=== PATIENT | male | born 1950 | race Caucasian/White ===

== ENCOUNTER 2019-05-12 10:08 | Inpatient (IN) | payer OTHER ==
[~2019-05-12] VITALS: Ht 193 cm; Wt 91.8 kg
[2019-05-12 10:17] VITALS: BP 128/70
[2019-05-12] MEDS ORDERED: DEPAKOTE500 MG PO (10:22)
[2019-05-12] MEDS ORDERED: AMARYL2 MG PO (10:22)
[2019-05-12] MEDS ORDERED: FORTAMET500 MG PO (10:22)
[2019-05-12] MEDS ORDERED: LISINOPRIL20 MG PO (10:23)
[2019-05-12] MEDS ORDERED: CARDURA4 MG PO (10:24)
[2019-05-12] MEDS ORDERED: LIPITOR40 MG PO (10:25)
[2019-05-12] MEDS ORDERED: NORVASC2.5 MG PO (10:25)
[2019-05-12] MEDS ORDERED: CLEOCIN HCL150 MG PO (10:25)
[2019-05-12 10:53] LABS: ABSOLUTE EOSINOPHILS 0.1 thou/uL (0.0-0.7); ABSOLUTE LYMPHOCYTES 1.9 thou/uL (0.8-5.3); ABSOLUTE MONOCYTES 1.9 thou/uL (0.0-1.2); ABSOLUTE NEUTROPHILS 9.7 thou/uL (1.6-8.1); BASOPHILS 0.3 %; EOSINOPHILS 0.5 %; HEMATOCRIT 39.5 % (42.0-52.0); HEMOGLOBIN 13.5 gm/dL (14.0-18.0); LYMPHOCYTES 13.9 %; MCH 33.1 pg (26.0-34.0); MCHC 34.2 g/dL (28.0-37.0); MCV 96.7 fL (80.0-100.0); MONOCYTES 14.1 %; MPV 8.5 fl. (7.2-11.1); NUCLEATED RBCS 0 /100WBC; PLATELET COUNT* 198 thou/uL (150-400); POLYS 71.2 %; RBC 4.09 mil/uL (4.50-6.00); RDW-CV 12.5 % (10.5-14.5); WBC 13.7 thou/uL (4.0-11.0)
[2019-05-12 10:59] LABS: CALCIUM 9.5 mg/dL (8.5-10.1); CREATININE 1.9 mg/dL (0.6-1.3); POTASSIUM 4.7 mmol/L (3.5-5.1)
[2019-05-12 11:16] LABS: ALBUMIN 2.9 g/dL (3.4-5.0); TOTAL BILIRUBIN 0.7 mg/dL (<0.1-1.0); TOTAL PROTEIN 7.4 g/dL (6.4-8.2); TROPONIN-I LEVEL 0.08 ng/mL (<0.06)
[2019-05-12 11:48] LABS: URINE BILIRUBIN NEGATIVE (Negative); URINE BLOOD 3+ (Negative); URINE CLARITY CLEAR; URINE COLOR YELLOW; URINE GLUCOSE-RANDOM NEGATIVE (Negative); URINE KETONES 1+ (Negative); URINE LEUKOCYTES-REFLEX NEGATIVE (Negative); URINE NITRITE-REFLEX NEGATIVE (Negative); URINE PROTEIN 3+ (Negative); URINE SPECIFIC GRAVITY >= 1.030 (1.005-1.030); URINE UROBILINOGEN 0.2 E.U./dl (0.2-1.0)
[2019-05-12 12:05] LABS: SQUAMOUS 0-3 Few /LPF (0-3)
[2019-05-12 12:06] LABS: BACTERIA-REFLEX 1-9 Few /HPF (None Seen); HYALINE CASTS 0-3 Few /LPF (None Seen); MUCUS 4-6 Moderate strn/LPF (None Seen); URINE RBC 0-2 Rare /HPF (0-2); URINE WBC-REFLEX 0-5 Rare /HPF (0-5)
[2019-05-12 12:07] LABS: CRYSTALS None Seen /LPF (None Seen)
[2019-05-12 14:05] VITALS: BP 130/56
[2019-05-12 14:15] VITALS: BP 142/55; BP 170/59
[2019-05-12 16:24] VITALS: BP 134/65
--- NOTE | 2019-05-12 17:26 | NUR ---
RECEIVED PT FROM ER 1400. HE IS ALERT/ORIENTED X4. VSS. 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 UP STANDBY ASSIST FROM CART TO BED. GAIT SLIGHTLY UNSTEADY. UPPER EXTREMITY TREMORS NOTED. ADMISSION ASSESSMENT AND HISTORY COMPLETED. HOME MEDICATIONS RECONCILED. IVF INFUSING. UPDATED THE PATIENT ON PLAN OF CARE. CALL LIGHT WITHIN REACH. BED ALARM ON. HOURLY ROUNDING CHARTED.
[2019-05-12 19:50] VITALS: BP 162/76
[2019-05-13] VITALS: BP 192/80
[2019-05-13 04:00] VITALS: BP 195/78
[2019-05-13 04:13] LABS: HEMATOCRIT 32.8 % (42.0-52.0); MCH 34.1 pg (26.0-34.0); MCV 97.5 fL (80.0-100.0); MPV 8.4 fl. (7.2-11.1); RBC 3.37 mil/uL (4.50-6.00); RDW-CV 12.8 % (10.5-14.5); WBC 9.1 thou/uL (4.0-11.0)
[2019-05-13 04:29] LABS: HEMOGLOBIN 11.5 gm/dL (14.0-18.0)
[2019-05-13 04:43] LABS: ALBUMIN 2.2 g/dL (3.4-5.0); CALCIUM 8.2 mg/dL (8.5-10.1); CREATININE 1.6 mg/dL (0.6-1.3); POTASSIUM 4.8 mmol/L (3.5-5.1); TOTAL BILIRUBIN 0.6 mg/dL (<0.1-1.0)
--- NOTE | 2019-05-13 06:34 | NUR ---
RECIEVED REPORT AND ASSUMED CARE AT 1900. VSS. CARDIAC MONITORING IN PLACE. PT DENIES COMPLAINTS OF PAIN. ASSESSMENT COMPLETED CHARTED. PT HAS VISIBLE TREMORS, PT REPORTS THESE ARE NEW OF THREE DAYS AGO. PER ER NOTATION PT FRIEND WHO WAS PRESENT IN ER, STATES TREMORS ARE NORMAL FOR PATIENT R/T MEDICATION. PT ALSO REPORTS HE TAKES HIS ANTIOBIOTICS PRESCRIBED FOR TOOTH ABCESS "OFF AND ON" "WHEN IT HURTS". PT UP WITH ASSIST TO BSC, ON RA. BED LOCKED IN LOWEST POSITION, CALL LIGHT WITHIN REACH, BED ALARM ON. HOURLY ROUNDING COMPLETED AND ALL NEEDS MET
[2019-05-13 08:00] VITALS: BP 168/72
--- NOTE | 2019-05-13 10:28 | NUR ---
Pt is A&O. Resides at home alone. Independent. No DME. No hx of HH or SNF. Supportive friends, no family. Goal is home. No needs anticipated.
[2019-05-13 10:38] VITALS: BP 158/66
--- NOTE | 2019-05-13 12:28 | EKG ---
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
--- NOTE | 2019-05-13 15:02 | NUR ---
ASSUMED PT CARE REPORT RECEIVED FROM NURSE PT IS AOX4. 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 PT IS ON RA. SEIZURE PRECAUTION IN PLACE. ACCUCHECK 84 THIS AM PT WAS NPO FOR THE NIGHT AND WAS WAITING FOR CARDIOLOGY CONSULT. ECHO COMPLETED. PT HAS TREMORS. UP WITH ASSIST X1 TO THE BEDSIDE COMMODE. WILL CONTINUE TO MONITOR PT
--- NOTE | 2019-05-13 15:54 | NUR ---
ACCORDING TO REST AND SATURATION STUDY , PT DOES NOT REQUIRE TO WEAR OXYGEN DURING THE DAY. PT NOW AWAITING FOR RIDE TO PICK HIM UP
--- NOTE | 2019-05-13 17:57 | EKG ---
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
--- NOTE | 2019-05-13 17:57 | EKG ---
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
--- NOTE | 2019-05-13 17:58 | EKG ---
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
[2019-05-13 20:00] VITALS: BP 165/79
[2019-05-14] VITALS: BP 178/66
--- NOTE | 2019-05-14 03:46 | NUR ---
ALERT ORIENTED. UP TO BSC WITH ONE PERSON ASSIST. TREMORS NOTED. SEIZURE PRECAUTIONS. TELEMETRY SHOWS SR. NS AT 100MLS/HR.
[2019-05-14 04:00] VITALS: BP 156/66
[2019-05-14 08:00] VITALS: BP 159/70
[2019-05-14] MEDS ORDERED: CLEOCIN HCL150 MG PO (11:44)
--- NOTE | 2019-05-14 13:00 | NUR ---
ASSUMED PT CARE REPORT RECEIVED FROM NURSE. PT IS AOX4, ON RA. O2 SATURATION IS 96%. NS AT 100 PER HOUR , IV ABX INFUSING. PT OUT OF BED TO CHAIR FOR BREAKFAST AND LUNCH. PT ATE WHOLE MEAL. ACCUCHECK 102. METFORMIN HELD. PLAN TO WORK WITH PT /OT TODAY. PT WALKS TO RESTROOM WITHOUT HELP. WILL CONTINUE TO MONITOR PT
[2019-05-14 13:30] VITALS: BP 145/64
--- NOTE | 2019-05-14 17:58 | NUR ---
PT LEFT TELE UNIT AT 1755 ACCOMPANIED BY J&S NURSING STAFF. ON RA. REPORT GIVEN TO J&S NURSE.ACCUCHECK 95, NO BLOOD SUGAR MEDICINE GIVEN
--- NOTE | 2019-05-14 18:14 | NUR ---
PT TRANSFERRED TO UNIT. PT ALERT AND ORIENTED. PT RESTING IN ROOM. MEDS GIVEN ORDERED. I AGREE WITH MORNING ASSESSMENT. FALL RISK PRECAUTIONS IN PLACE. HOURLY ROUNDING COMPLETED. WILL CONTINUE TO MONITOR.
[2019-05-14 20:01] VITALS: BP 183/81
[2019-05-14 21:09] VITALS: BP 173/73
[2019-05-15] VITALS: BP 162/66
[2019-05-15 04:00] VITALS: BP 150/63
--- NOTE | 2019-05-15 05:13 | NUR ---
PATIENT HAD NO COMPLAINT OF PAIN DURING SHIFT. HE SLEPT THROUGH THE NIGHT. BOTH DOSES OF CLINDAMYCIN AND DIVALPROEX ADMINISTERED WELL IV ABX. NO NEW SYMPTOMS TO REPORT OR WORSENING OF CONDITION.
[2019-05-15 08:00] VITALS: BP 168/68
[2019-05-15 10:10] LABS: ABSOLUTE EOSINOPHILS 0.3 thou/uL (0.0-0.7); ABSOLUTE LYMPHOCYTES 1.1 thou/uL (0.8-5.3); ABSOLUTE MONOCYTES 0.7 thou/uL (0.0-1.2); ABSOLUTE NEUTROPHILS 4.7 thou/uL (1.6-8.1); BASOPHILS 0.3 %; EOSINOPHILS 5.1 %; HEMATOCRIT 34.4 % (42.0-52.0); LYMPHOCYTES 16.5 %; MCH 33.3 pg (26.0-34.0); MCHC 34.8 g/dL (28.0-37.0); MCV 95.6 fL (80.0-100.0); MONOCYTES 9.9 %; MPV 8.1 fl. (7.2-11.1); NUCLEATED RBCS 0 /100WBC; PLATELET COUNT* 178 thou/uL (150-400); POLYS 68.2 %; RDW-CV 12.5 % (10.5-14.5); WBC 6.8 thou/uL (4.0-11.0)
[2019-05-15 15:45] LABS: BE -3.3 mmol/L (-2 to +3); PCO2 32.7 mmHg (35.0-45.0); PO2 88.6 mmHg (75.0-100.0); pH 7.418 (7.340-7.450)
[2019-05-15 16:00] VITALS: BP 145/62
[2019-05-15 19:45] VITALS: BP 178/66
--- NOTE | 2019-05-16 06:12 | NUR ---
Alert and oriented x 4. Up in room with stand by assist to the bathroom. He has voided frequently this shift. His gait is slightly unsteady so he does need stand by assist. He has 2 IV's. Normal saline at 100mls/hr and Sodium bicarb at 50mls/hr. he did get his iV zosyn this shift that runs over 4hrs. Vitals are stable. He didn't have any labs ordered this am. He denies pain or nausea. He has slept intermittenly.
[2019-05-16 08:00] VITALS: BP 181/74
[2019-05-16 08:45] LABS: CALCIUM 8.9 mg/dL (8.5-10.1); CREATININE 1.2 mg/dL (0.6-1.3)
[2019-05-16] MEDS ORDERED: CEFDINIR300 MG PO (08:54)
[2019-05-16] MEDS ORDERED: DOXYCYCLINE 10100 MG PO (08:54)
[2019-05-16 09:47] VITALS: BP 178/66
--- NOTE | 2019-05-16 14:28 | NUR ---
DISCHARGE NOTE - REVIEWED INSTRUCTIONS WITH PT. NO QUESIONS. IV REMOVED. ALL BELONGINGS SENT WITH PT.
--- NOTE | 2019-05-18 12:14 | CON ---
[address] [address] CONSULTATION Name: JODY ONTIVEROS Room: [address] IN M.R.#: [id number] Admission: 05/12/19 Attend Phys: Ranjit Carreno Discharge: 05/16/19 Date of : 48 Report #: [id number] THIS REPORT FOR: //name// CC: Vadim Echavarria DATE OF SERVICE: 05/13/2019 CARDIOLOGY CONSULTATION LOCATION: The patient is in room 203. HISTORY OF PRESENT ILLNESS: The patient is a 68-year-old male with hypertension and diabetes. He presented after weakness and collapse. He was found to have minimal increase in troponin I at 0.07. The patient had undergone prior stress testing and echocardiographic evaluation in 2017 with a negative stress test at that time. He denies any chest pain or dyspnea associated with the alteration in consciousness and weakness and falling that precipitated his admission. As noted above, he does have hypertension and diabetes, and current therapy includes metformin, glimepiride, amlodipine, doxazosin, lisinopril, and atorvastatin. PAST MEDICAL HISTORY: Remarkable for the aforementioned diabetes and hypertension. SOCIAL HISTORY: The patient is a nonsmoker. REVIEW OF SYSTEMS: Remarkable for the following: NEUROLOGIC: He had alteration of consciousness with falling on admission. MUSCULOSKELETAL: There is generalized weakness. PHYSICAL EXAMINATION: GENERAL: Reveals a frail-appearing middle-aged male. VITAL SIGNS: Blood pressure is 125/70, pulse rate is 74, and respirations are 18 per minute. NECK: Jugular venous pressure is normal. CHEST: Clear. CARDIAC: Reveals normal first and second heart sounds with a soft systolic murmur. ABDOMEN: Mildly obese. EXTREMITIES: Without edema, with intact pulses. LABORATORY DATA: Remarkable for hemoglobin of 11.5, white cell count of 9100; [place] [address] CONSULTATION Name: RONIPRISCAMAGGIEJODY BARRON Room: [address]#: [id number] Admission: 05/12/19 Attend Phys: Ranjit Carreno Discharge: 05/16/19 Date of : 48 Report #: [id number] 13,700 on admission, with platelets of 149,000. Sodium 143, potassium 4.8, BUN 23, creatinine 1.6. Troponin 0.07. EKG reveals sinus rhythm with left bundle-branch block. IMPRESSION: 1. Episode of falling with transitory loss of consciousness. 2. Minimal increase in troponin I. 3. History of hypertension. 4. History of hypercholesterolemia. 5. Modest renal insufficiency. RECOMMENDATIONS: At this point, given the absence of chest discomfort and a trivial increase in troponin, I would not recommend invasive evaluation. I think current supportive therapy with rehydration is appropriate and continued attention to diabetes and hypertension as is underway. <ELECTRONICALLY SIGNED> By: Fred Becerra MD, [facility] 05/18/19 1214 1502 [id number] Becerra MD, FACC /nt
== END 2019-05-16 14:30 | disposition home or self-care (01) | DRG 871 ==
LOC: M.ERS 10:08 → M.TBA-ER 12:35 → M.ORTHSURG 12:35 → M.2W 12:35 → M.ORTHSURG 05-14 17:53
PROVIDERS: Nurse Practitioner Family; ADMIT Internal Medicine
DX: A41.9 Sepsis, unspecified organism (principal); N17.0 Acute kidney failure with tubular necrosis; E44.0 Moderate protein-calorie malnutrition; M62.82 Rhabdomyolysis; E11.22 Type 2 diabetes mellitus with diabetic chronic kidney disease; I12.9 Hypertensive chronic kidney disease with stage 1 through stage 4 chronic kidney disease, or unspecified chronic kidney disease; E78.00 Pure hypercholesterolemia, unspecified; J98.8 Other specified respiratory disorders; N18.3 Chronic kidney disease, stage 3 (moderate); Z79.899 Other long term (current) drug therapy; Z68.24 Body mass index [BMI] 24.0-24.9, adult